=== PATIENT | male | born 2000 | race Caucasian/White ===

== ENCOUNTER 2021-07-30 23:38 | Emergency (ER) | payer BC ==
[2021-07-30 23:45] VITALS: TEMP 98.8
[2021-07-30] MEDS ORDERED: SODIUM CHLORIDE 0.9% 1,000 ML IV STA (23:46)
--- NOTE | 2021-07-30 23:47 | ED ---
General Adult HPI - General Chief complaint: Syncope Stated complaint: Syncope Time Seen by Provider: 07/30/21 23:44 Source: patient Mode of arrival: wheelchair Limitations: no limitations - History of Present Illness Initial comments: Patient presents to the ED with his friend for evaluation. Patient states that he was sitting and hanging out in his friend's garage tonight when he suddenly developed ringing in his ears and a feeling of lightheadedness. Patient then reportedly had a syncopal episode. Patient's friend, who was with the patient, reports that the patient slumped over to the side and he caught the patient before he fell to the ground. Patient's friend reports that the patient's syncopal episode was very brief and lasted for only a few seconds. Patient's friend denies any fall to the ground or trauma. Patient states that after coming to, he had something to eat and drank a few glasses of water, and he states that he now feels better. Patient states that he did take a "pre- workout" and started back on "creatine" today, and he is not sure if that may have precipitated his syncopal episode today. Patient denies alcohol use or illicit drug use. Patient denies any fire or running vehicles in the garage he was in tonight. Patient denies having any pain, fever or chills, headache, focal numbness/weakness/neuro deficit, neck/back/extremity pain, chest pain, dyspnea, cough or cold symptoms, palpitations, abdominal pain, nausea/vomiting/diarrhea, bloody or melanotic stool, dysuria or urinary symptoms, or any other symptoms or complaints. - Related Data Allergies Allergy/AdvReac Type Severity Reaction Status Date / Time No Known Allergies Allergy Verified 07/30/21 23:42 Review of Systems ROS Statement: Those systems with pertinent positive or pertinent negative responses have been documented in the HPI. ROS Other: All systems not noted in ROS Statement are negative. Past Medical History Past Medical History: No Reported History History of Any Multi-Drug Resistant Organisms: None Reported Past Surgical History: No Surgical Hx Reported Past Psychological History: No Psychological Hx Reported Smoking Status: Current some day smoker Past Alcohol Use History: None Reported Past Drug Use History: Marijuana General Exam Limitations: no limitations General appearance: alert, in no apparent distress Head exam: Present: atraumatic, normocephalic Eye exam: Present: normal appearance, PERRL, EOMI ENT exam: Present: mucous membranes moist Neck exam: Present: other (Trachea is in midline). Absent: tenderness Respiratory exam: Present: normal lung sounds bilaterally. Absent: respiratory distress, wheezes, rales, rhonchi, stridor Cardiovascular Exam: Present: normal rhythm, tachycardia, normal heart sounds, other (Normal radial pulses bilaterally) GI/Abdominal exam: Present: soft. Absent: distended, tenderness, guarding Extremities exam: Present: full ROM, other (Negative Homans sign bilaterally). Absent: tenderness, pedal edema, calf tenderness Neurological exam: Present: alert, oriented X3, CN II-XII intact. Absent: motor sensory deficit Psychiatric exam: Present: normal affect, normal mood Skin exam: Present: warm, dry, intact, normal color Course Vital Signs 07/30/21 07/31/21 23:42 00:12 Temperature 98.8 F Pulse Rate 131 H 102 H Respiratory 20 18 Rate Blood Pressure 145/78 136/87 O2 Sat by Pulse 98 98 Oximetry - Reevaluation(s) Reevaluation #1: 07/31/21 00:41 Patient denies development of any new symptoms while in the ED, and he states that he is feeling much better now. Patient remains alert and breathing comfortably. Patient's tachycardia has now resolved. Patient and friend are aware the patient's test results, and patient feels comfortable going home with his friend at this time. Patient was counseled about syncope, and he was clearly explained return and follow-up instructions. Patient was instructed to have a low threshold for return to the emergency department should his symptoms return or worsen. Patient was also instructed to drink plenty of fluids/water to stay well hydrated. Patient was instructed to follow up closely with his primary care provider as well. Patient feels comfortable with this plan. EKG Findings - EKG Comments: EKG Findings:: Normal sinus rhythm, ventricular rate of 90 bpm, no ectopy, normal LA and QRS intervals, normal QT interval, normal axis, no ST or T-wave abnormality Medical Decision Making - Medical Decision Making Patient's EKG and labs are fairly unremarkable. Patient states that his symptoms have improved. Patient's tachycardia has resolved while in the ED. I do not suspect an emergent medical condition at this time. I suspect that the patient's syncopal episode was due to a benign etiology. Will discharge patient home with his friend at this time. Patient feels comfortable with this plan. - Lab Data Result diagrams: 07/31/21 00:12 07/31/21 00:12 Lab Results 07/31/21 07/31/21 Range/Units 00:12 00:12 WBC 13.8 H (4.0-11.0) k/uL RBC 5.43 (4.30-5.90) m/uL Hgb 16.4 (13.0-17.5) gm/dL Hct 46.2 (39.0-53.0) % MCV 85.0 (80.0-100.0) fL MCH 30.3 (25.0-35.0) pg MCHC 35.6 (31.0-37.0) g/dL RDW 12.2 (11.5-15.5) % Plt Count 251 (150-450) k/uL MPV 7.2 Neutrophils % 78 % Lymphocytes % 12 % Monocytes % 7 % Eosinophils % 1 % Basophils % 1 % Neutrophils # 10.8 H (1.3-7.7) k/uL Lymphocytes # 1.6 (1.0-4.8) k/uL Monocytes # 0.9 (0-1.0) k/uL Eosinophils # 0.2 (0-0.7) k/uL Basophils # 0.1 (0-0.2) k/uL Sodium 139 (137-145) mmol/L Potassium 3.4 L (3.5-5.1) mmol/L Chloride 101 (98-107) mmol/L Carbon Dioxide 26 (22-30) mmol/L Anion Gap 12 mmol/L BUN 19 (9-20) mg/dL Creatinine 1.15 (0.66-1.25) mg/dL Est GFR (CKD-EPI)AfAm >90 (>60 ml/min/1.73 sqM) Est GFR (CKD-EPI)NonAf >90 (>60 ml/min/1.73 sqM) Glucose 149 H (74-99) mg/dL Calcium 9.8 (8.4-10.2) mg/dL Magnesium 2.1 (1.6-2.3) mg/dL Total Bilirubin 0.9 (0.2-1.3) mg/dL AST 29 (17-59) U/L ALT 15 (4-49) U/L Alkaline Phosphatase 77 (38-126) U/L Total Protein 8.2 (6.3-8.2) g/dL Albumin 5.2 H (3.5-5.0) g/dL Disposition Clinical Impression: Syncope Disposition: HOME SELF-CARE Condition: Stable Instructions (If sedation given, give patient instructions): Syncope (ED) Additional Instructions: Return to the ER immediately should you develop any significant pain, feeling faint or fainting, shortness of breath, or new or worsening symptoms. Follow up closely with your primary care provider. Is patient prescribed a controlled substance at d/c from ED?: No Referrals: None,Stated [Primary Care Provider] - 1-2 days Nicole Rodney MD [REFERRING] - 1-2 days Time of Disposition: 00:43
[2021-07-31 00:18] LABS: Basophils # (A) 0.1 k/uL (0-0.2); Basophils % (A) 1 %; Eosinophils # (A) 0.2 k/uL (0-0.7); Eosinophils % (A) 1 %; HCT 46.2 % (39.0-53.0); HGB 16.4 gm/dL (13.0-17.5); Lymphocytes # (A) 1.6 k/uL (1.0-4.8); Lymphocytes % (A) 12 %; MCH 30.3 pg (25.0-35.0); MCHC 35.6 g/dL (31.0-37.0); Mean Platelet Volume 7.2; Monocytes # (A) 0.9 k/uL (0-1.0); Monocytes % (A) 7 %; Neutrophils # (A) 10.8 k/uL (1.3-7.7); Neutrophils % (A) 78 %; Platelet Count 251 k/uL (150-450); RBC 5.43 m/uL (4.30-5.90); RDW 12.2 % (11.5-15.5); WBC 13.8 k/uL (4.0-11.0)
[2021-07-31 00:19] VITALS: PULSE 102; RESP 18
[2021-07-31 00:30] LABS: ALT 15 U/L (4-49); AST 29 U/L (17-59); African American GFR (CKD) >90 (>60 ml/min/1.73 sqM); Albumin 5.2 g/dL (3.5-5.0); Alkaline Phosphatase 77 U/L (38-126); Anion Gap 12 mmol/L; Blood Urea Nitrogen 19 mg/dL (9-20); Calcium 9.8 mg/dL (8.4-10.2); Carbon Dioxide 26 mmol/L (22-30); Chloride 101 mmol/L (98-107); Glucose 149 mg/dL (74-99); Magnesium 2.1 mg/dL (1.6-2.3); Non-African American GFR(CKD) >90 (>60 ml/min/1.73 sqM); Potassium 3.4 mmol/L (3.5-5.1); Sodium 139 mmol/L (137-145); Total Bilirubin 0.9 mg/dL (0.2-1.3); Total Protein 8.2 g/dL (6.3-8.2)
[2021-07-31 01:00] VITALS: BP 136/86
== END 2021-07-31 00:59 | disposition home or self-care (01) ==
LOC: EC 23:38
DX: R55 Syncope and collapse (principal); F17.200 Nicotine dependence, unspecified, uncomplicated
CPT/HCPCS: 36415; 80053; 83735; 85025; 93005; 96360; 99284

== ENCOUNTER → 2021-09-01 | Outpatient (CLI) | payer BC ==
--- NOTE | 2021-09-01 13:24 | ECHOS ---
STRESS ECHOCARDIOGRAM INDICATIONS: Syncope BASELINE HEART RATE: 108 BASELINE BLOOD PRESSURE: 136/89 MAXIMUM HEART RATE: 188 MAXIMUM BLOOD PRESSURE: 166/96 85% MPHR: 170 100% MPHR: 200 METS: 9.4 MAXIMUM STAGE REACHED: 3 TOTAL EXERCISE TIME: 9 min. CLINICAL INFORMATION: Baseline rhythm is sinus mechanism, rate of 108, borderline right axis deviation. Baseline blood pressure 136/89 mmHg. Patient exercised on Roni protocol for 9 minutes, reaching peak rate of 188 beats per minute, which is equal to 94% of maximum predicted heart rate. Peak blood pressure 161/81 mmHg. Test was terminated secondary to fatigue. There was no chest pain. Electrocardiograph monitoring revealed no evidence of diagnostic ischemic ST deviation. FINDINGS: Baseline echocardiogram revealed normal wall thickness and motion. At peak exercise there was normal wall motion augmentation with no hypokinesis or dyskinesis. CONCLUSION: 1. Good exercise tolerance with normal electrocardiograph response to exercise. 2. Normal stress echocardiogram with no evidence of stress-induced ischemia. MMODL / IJN: [id number] /
== END | disposition home or self-care (01) ==
LOC: RADNMMAIN 09:05
PROVIDERS: ATTEND Family Medicine
DX: R07.89 Other chest pain (principal); R06.02 Shortness of breath
CPT/HCPCS: 93351

== ENCOUNTER 2022-07-01 18:29 | Emergency (ER) | payer BC ==
[2022-07-01 18:42] VITALS: BP 154/87; PULSE 96; RESP 18; TEMP 98.2
[2022-07-01] MEDS ORDERED: LIDOCAINE 1% INJ 10MG/ML (30 ML VIAL-PF) SQ ONE (18:54)
[2022-07-01] MEDS ORDERED: BACITRACIN OINT 1 EACH PACKET TOPICAL ONE (19:21)
--- NOTE | 2022-07-01 19:28 | ED ---
Wound/Laceration HPI - General Chief Complaint: Wound/Laceration Stated Complaint: Arm Lac Time Seen by Provider: 07/01/22 18:54 Source: patient, RN notes reviewed Mode of arrival: ambulatory Limitations: no limitations - History of Present Illness Initial Comments: Patient percents to the ER after sustaining a laceration to his right forearm. Patient was trying to open a package for his knees when he slipped. Patient using a pocket knife. Patient denies any distal proximal injuries. Denies any distal paresthesias. No functional impairment. Moving all fingers, hand, and wrist normally. Last tetanus is unknown. No headache, no fever or chills, no changes in vision or hearing, no sore throat or difficulty with speech, no neck pain, no chest pain or shortness of breath, no abdominal pain, no nausea or vomiting, no changes in urination or bowel movements, no numbness or tingling, no extremity pain, no skin rashes or lesions. Past medical, surgical, social, and family history reviewed. Denies any pain or any chance of foreign body. Injury occurred just prior to arrival. - Related Data Allergies Allergy/AdvReac Type Severity Reaction Status Date / Time No Known Allergies Allergy Verified 07/01/22 18:42 Review of Systems ROS Statement: Those systems with pertinent positive or pertinent negative responses have been documented in the HPI. ROS Other: All systems not noted in ROS Statement are negative. Past Medical History Past Medical History: No Reported History History of Any Multi-Drug Resistant Organisms: None Reported Past Surgical History: No Surgical Hx Reported Past Psychological History: No Psychological Hx Reported Smoking Status: Current some day smoker Past Alcohol Use History: None Reported Past Drug Use History: Marijuana General Exam Limitations: no limitations General appearance: alert, in no apparent distress Head exam: Present: atraumatic, normocephalic, normal inspection Eye exam: Present: normal appearance, EOMI ENT exam: Present: normal exam Neck exam: Present: normal inspection Respiratory exam: Absent: respiratory distress Cardiovascular Exam: Present: regular rate, normal rhythm, normal heart sounds. Absent: systolic murmur, diastolic murmur, rubs, gallop, clicks GI/Abdominal exam: Absent: distended Extremities exam: Present: full ROM, normal capillary refill, other (Patient has a superficial laceration to the volar aspect of his right forearm, overlying the distal ulna. Radial pulse 2+ out of 4. Ulnar pulse 2+4. Distal sensation intact. Full function with regards to all fingers.). Absent: normal inspectio n, tenderness Right Forearm Wrist exam: Present: full ROM, laceration. Absent: tenderness, swelling, abrasion, ecchymosis, deformity, crepitus, dislocation, erythema, te nderness over anatomical snuff box, pain with axial thumb loading Neuro motor exam: Present: wrist extension intact, thumb opposition intact, thumb IP flexion intact, thumb adduction intact, fingers 2-5 abduction intact Neurosensory exam: Present: 2-point discrimination, radial nerve intact, ulnar nerve intact, median nerve intact Vascular: Present: normal capillary refill. Absent: vascular compromise, Pallo, pulse deficit radial art, pulse deficit ulnar art, pulse deficit brachial art, radial pulse, brachial pulse, ulnar pulse Back exam: Present: normal inspection, full ROM Neurological exam: Present: alert, oriented X3, CN II-XII intact. Absent: motor sensory deficit Course Vital Signs 07/01/22 18:41 Temperature 98.2 F Pulse Rate 96 Respiratory 18 Rate Blood Pressure 154/87 O2 Sat by Pulse 99 Oximetry Procedures - Laceration Laceration #1 Consent Obtained: verbal consent Indication: laceration Site: upper extremity (Right forearm) Size (cm): 2 Description: irregular, clean Depth: simple, single layer Anesthetic Used: lidocaine 1% Amount (mls): 3 Pre-repair: wound explored, irrigated extensively, deep structures intact Type of Sutures: nylon Size of Sutures: 5-0 Number of Sutures: 3 Technique: simple, interrupted Patient Tolerated Procedure: well, no complications Medical Decision Making - Medical Decision Making Was pt. sent in by a medical professional or institution? @ -no Did you speak to anyone other than the patient for history? @ -no Did you review nursing and triage notes? @ -yes Were old charts reviewed? @ -no Differential Diagnosis? @ -Isolated laceration to the right forearm EKG interpreted by me (3pts min.)? @ -[none] X-rays interpreted by me (1pt min.)? @ -[none] CT interpreted by me (1pt min.)? @ -[none] U/S interpreted by me (1pt. min.)? @ -[none] What testing was considered but not performed? (CT, X-rays, U/S, labs)? Why? @ I did consider plain film x-rays of the right forearm and wrist. However patient states there is no chance of foreign body, this wound was superficial and can be fully examined to its base. X-rays were deferred to shared decision- making. What meds were considered but not given? Why? @ -Antibiotics were considered but not given due to the acute nature of this wound and superficial nature. Did you discuss the management of the patient with other professionals? @ -Tending physician Did you reconcile home meds? @ -[none] Was smoking cessation discussed for >3mins.? @ -[none] Was critical care preformed (if so, how long)? @ -[none] Were there social determinants of health that impacted care today? How? (Homelessness, low income, unemployed, alcoholism, drug addiction, transportation, low edu. Level, literacy, decrease access to med. care, detention, rehab)? @ -None Was there de-escalation of care discussed even if they declined? (Discuss DNR or withdrawal of care, Hospice)? @ -Not applicable What co-morbidities impacted this encounter? (DM, HTN, Smoking, COPD, CAD, Cancer, CVA, Hep., AIDS, mental health diagnosis, sleep apnea, morbid obesity)? @ -none Was patient admitted / discharged? @ -Discharged in stable condition Undiagnosed new problem with uncertain prognosis? @ -[none] Drug Therapy requiring intensive monitoring for toxicity (Heparin, Nitro, Insulin, Cardizem)? @ -[none] Were any procedures done? @ -Laceration repair Diagnosis/symptom? @ -Arm laceration Acute, or Chronic, or Acute on Chronic? @ -Acute Uncomplicated (without systemic symptoms) or Complicated (systemic symptoms)? @ -Uncomplicated Side effects of treatment? @ -[none] Exacerbation, Progression, or Severe Exacerbation] @ -[no] Poses a threat to life or bodily function? @ -[no] Patient was told to return to the ER for any signs or symptoms worsen. Told to return immediately if any other problems arise. All questions answered. Treatment plan discussed. Patient in agreement Every effort has been made to ensure accuracy of this dictation. However, due to the limitations of electronic medical records and dictation devices, errors in charting still occur. Supervising physician Dr. Sahni Disposition Clinical Impression: Laceration of right forearm without complication Disposition: HOME SELF-CARE Condition: Good Instructions (If sedation given, give patient instructions): Laceration (ED) Additional Instructions: [Your sutures are located on your extremities please return to the emergency department, your PCP's office, or a local urgent care center, in 7-10 days for suture removal. ] Wash daily with warm soap and water. Apply a thin layer of antibiotic ointment such as Neosporin or triple antibiotic ointment. Keep covered with a bandage. Any signs of infection such as fever, redness, swelling, weeping of the wound, or increased pain around the area of the laceration please return to the emergency department to be reevaluated Follow-up with your regular physician as directed. Return to the ER immediately if any symptoms worsen, new symptoms arise, or any other problems develop. Is patient prescribed a controlled substance at d/c from ED?: No Referrals: Nonstaff,Physician [REFERRING] - 1-2 days Time of Disposition: 19:28
[2022-07-01] MEDS ORDERED: DIPH,PERTUS(ACELL)TETVAC-LF 0.5 ML VIAL IM ONE (19:47)
== END 2022-07-01 19:52 | disposition home or self-care (01) ==
LOC: EC 18:29
DX: S51.811A Laceration without foreign body of right forearm, initial encounter (principal); F17.200 Nicotine dependence, unspecified, uncomplicated; F12.90 Cannabis use, unspecified, uncomplicated; W26.0XXA Contact with knife, initial encounter; Z23 Encounter for immunization
CPT/HCPCS: 99282; 12001; 90715; 90471; J2001